=== PATIENT | female | born 1980 | race Caucasian/White ===

== ENCOUNTER 2016-11-02 09:33 | Emergency (ER) | payer MEDICAID ==
[2016-11-02 10:03] VITALS: RESP 18; TEMP 98
[2016-11-02] MEDS ORDERED: LIDOCAINE 2% VISCOUS 15 ML UDCUP PO ONE (10:39)
[2016-11-02] MEDS ORDERED: ONDANSETRON 4 MG/2 ML VIAL IVP ONE (10:39)
[2016-11-02] MEDS ORDERED: MAG HYDROX/AL HYDROX/SIMETH 30 ML UDCUP PO ONE (10:39)
[2016-11-02] MEDS ORDERED: NS 1,000 ML IV ONE (10:39)
[2016-11-02] MEDS ORDERED: HYOSCYAMINE SULFATE 0.125 MG TAB PO ONE (10:39)
--- NOTE | 2016-11-02 10:39 | UCPHY ---
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 - states pain feels similar Time Seen by Provider: 11/02/16 10:28 HPI/ROS: CHIEF COMPLAINT: Pancreatitis symptoms HISTORY OF PRESENT ILLNESS: 36-year-old female with history of pancreatitis secondary to alcohol presents reporting that she has epigastric pain as well as some left upper quadrant pain since yesterday. She feels like it is similar to her prior pancreatitis symptoms. She has been sober for 1 year and 30 days. She also has history of reflux. She took Maalox this morning with some relief of her discomfort. Abdominal discomfort radiates into the chest and to the throat. Patient is nauseous but has not had any vomiting. No diarrhea. She also wonders whether symptoms may be related to elevated cholesterol. She is on simvastatin. REVIEW OF SYSTEMS: Aside from elements discussed in the HPI, a comprehensive 10-point review of systems was reviewed and is negative. PAST MEDICAL HISTORY: Pancreatitis, anxiety, hypercholesterolemia SOCIAL HISTORY: Occasional smoker, no alcohol, just started a new job which is stressful. VITAL SIGNS Reviewed by me. GENERAL: Well-developed, well-nourished, resting comfortably in no respiratory distress. HEENT: Atraumatic. Eyes: No icterus, no injection. Mouth: moist mucous membranes. No erythema or lesions. Neck: supple with no adenopathy. LUNGS: Clear to auscultation bilaterally, no wheezes, rhonchi or rales. CARDIAC: Regular rate and rhythm, no rubs, murmurs or gallops. ABDOMEN: Soft, mild epigastric and left upper quadrant tenderness to deep palpation. No guarding or rebound. BACK: No CVA tenderness. EXTREMITIES: No trauma. No edema. Range of motion is normal throughout. NEURO: Alert and oriented, grossly nonfocal. SKIN: Warm and dry, no rash. PSYCHIATRIC: Normal mentation, no agitation. 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, anxiety/ depression, high cholesterol, pancreatitis, tonsillectomy, choly - Family History Significant Family History: No pertinent family hx - Social History Smoking Status: Current some day smoker Constitutional: Initial Vital Signs Temperature (C) 36.6 C 11/02/16 10:01 Heart Rate 79 11/02/16 10:01 Respiratory Rate 18 11/02/16 10:01 Blood Pressure 121/67 H 11/02/16 10:01 O2 Sat (%) 97 11/02/16 10:01 O2 Delivery Mode Room Air Allergies/Adverse Reactions: latex [Latex] Allergy (Mild, Verified 01/30/14 15:48) REDNESS/ITCHY morphine [Morphine] Allergy (Mild, Verified 01/30/14 15:48) Vomiting sulfamethoxazole [From Bactrim] Allergy (Verified 05/11/14 19:16) trimethoprim [From Bactrim] Allergy (Verified 05/11/14 19:16) Home Medications: Medication Instructions Recorded Gabapentin BID 06/24/15 Gabapentin 300 mg PO HS 06/24/15 Pantoprazole Sodium [Protonix 40mg DAILY 06/24/15 (RX)] Cymbalta 11/02/16 Dicyclomine [Bentyl 20 MG (*)] 20 mg PO QID PRN #20 tab 11/02/16 Ondansetron Odt [Zofran Odt 4 mg 4 mg PO Q6 PRN #12 tab 11/02/16 (*)] Ranitidine HCl 150 mg PO HS #30 tablet 11/02/16 Medical Decision Making ED Course/Re-evaluation: IV was placed and patient received oral healing. She requested a GI cocktail. She declined any narcotic medications. She also received Zofran. She requests a cholesterol level be drawn. Last oral intake 8 o'clock last night. Labs are all normal including LFTs, lipase, and cholesterol. Patient was reexamined. She reports that the GI cocktail improved her symptoms significantly. I believe her symptoms are most likely related to reflux and GERD and gastritis. She was comfortable being discharged with Zantac to add to her Prilosec regiement, Zofran for nausea, and Bentyl for abdominal discomfort. 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 Differential Diagnosis: After obtaining the patient's history and performing an examination, differential diagnosis considered included but was not limited to appendicitis, cholecystitis, gastritis, pancreatitis, kidney stones, urinary tract infections and other causes. - Data Points Laboratory Results: Laboratory Results 11/02/16 10:44 11/02/16 10:44 11/02/16 11/02/16 11/02/16 11:30 10:44 10:44 WBC 4.12 10^3/uL 10^3/uL (3.80-9.50) RBC 4.43 10^6/uL 10^6/uL (4.18-5.33) Hgb 14.9 g/dL g/dL (12.6-16.3) Hct 42.6 % % (38.0-47.0) MCV 96.2 fL fL (81.5-99.8) MCH 33.6 pg pg (27.9-34.1) MCHC 35.0 g/dL g/dL (32.4-36.7) RDW 12.5 % % (11.5-15.2) Plt Count 240 10^3/uL 10^3/uL (150-400) MPV 9.6 fL fL (8.7-11.7) Neut % (Auto) 64.3 % % (39.3-74.2) Lymph % (Auto) 26.0 % % (15.0-45.0) [place]kean % (Auto) 7.5 % % (4.5-13.0) Eos % (Auto) 1.5 % % (0.6-7.6) Baso % (Auto) 0.5 % % (0.3-1.7) Nucleat RBC Rel Count 0.0 % % (0.0-0.2) Absolute Neuts (auto) 2.65 10^3/uL 10^3/uL (1.70-6.50) Absolute Lymphs (auto) 1.07 10^3/uL 10^3/uL (1.00-3.00) Absolute Monos (auto) 0.31 10^3/uL 10^3/uL (0.30-0.80) Absolute Eos (auto) 0.06 10^3/uL 10^3/uL (0.03-0.40) Absolute Basos (auto) 0.02 10^3/uL 10^3/uL (0.02-0.10) Absolute Nucleated RBC 0.00 10^3/uL 10^3/uL (0-0.01) Immature Gran % 0.2 % % (0.0-1.1) Immature Gran # 0.01 10^3/uL 10^3/uL (0.00-0.10) Sodium 141 mEq/L mEq/L (134-144) Potassium 4.5 mEq/L mEq/L (3.5-5.2) Chloride 106 mEq/L mEq/L (97-110) Carbon Dioxide 25 mEq/l mEq/l (22-31) Anion Gap 10 mEq/L mEq/L (8-16) BUN 15 mg/dL mg/dL (7-23) Creatinine 0.7 mg/dL mg/dL (0.6-1.0) Estimated GFR > 60 Glucose 79 mg/dL mg/dL (70-100) Calcium 9.0 mg/dL mg/dL (8.5-10.4) Total Bilirubin 0.6 mg/dL mg/dL (0.1-1.4) Conjugated Bilirubin 0.2 mg/dL mg/dL (0.0-0.5) Unconjugated Bilirubin 0.4 mg/dL mg/dL (0.0-1.1) AST 20 IU/L IU/L (14-46) ALT 35 IU/L IU/L (9-52) Alkaline Phosphatase 59 IU/L IU/L (38-126) Total Protein 6.6 g/dL g/dL (6.3-8.2) Albumin 3.7 g/dL g/dL (3.5-5.0) Cholesterol 188 mg/dL mg/dL (140-200) Lipase 105.0 IU/L IU/L (23-300) Urine Color YELLOW Urine Appearance CLEAR Urine pH 7.0 (5.0-7.5) Ur Specific [place] 1.020 (1.002-1.030) Urine Protein NEGATIVE (NEGATIVE) Urine Ketones NEGATIVE (NEGATIVE) Urine Blood NEGATIVE (NEGATIVE) Urine Nitrate NEGATIVE (NEGATIVE) Urine Bilirubin NEGATIVE (NEGATIVE) Urine Urobilinogen 0.2 EU EU (0.2-1.0) Ur Leukocyte Esterase NEGATIVE (NEGATIVE) Urine Glucose NEGATIVE (NEGATIVE) Medications Given: Discontinued Medications Al Hydroxide/Mg Hydroxide (Maalox Susp) 30 ml PO ONCE ONE Stop: 11/02/16 10:40 Last Admin: 11/02/16 10:54 Dose: 30 ml Hyoscyamine Sulfate (Levsin, Hyomax-Sl) 0.25 mg PO ONCE ONE Stop: 11/02/16 10:40 Last Admin: 11/02/16 10:52 Dose: 0.25 mg Sodium Chloride (Ns) 1,000 mls @ 0 mls/hr IV ONCE ONE PRN Reason: Wide Open Stop: 11/02/16 10:40 Last Admin: 11/02/16 10:53 Dose: 1,000 mls Lidocaine (Lidocaine 2% Viscous) 15 ml PO ONCE ONE Stop: 11/02/16 10:40 Last Admin: 11/02/16 10:54 Dose: 15 ml Ondansetron HCl (Zofran) 4 mg IVP EDNOW ONE Stop: 11/02/16 10:40 Last Admin: 11/02/16 10:53 Dose: 4 mg Departure - Departure Disposition: Home, Routine, Self-Care Clinical Impression: Abdominal pain, Nausea, Gastritis Condition: Good Instructions: Gastritis (ED), Diet for Stomach Ulcers and Gastritis (ED), Abdominal Pain (ED) Additional Instructions: please take the medications as directed. I would recommend that you add Zantac at night. Use Bentyl as needed for abdominal pain. Use Zofran as needed for nausea and vomiting. Follow up with her primary care physician if not improving as expected. Referrals: Lauren Ayala, GEOLOGICAL TECHNICAL OFFICER [Primary Care Provider] - As per Instructions Stand Alone Forms: Work Excuse Prescriptions: Dicyclomine [Bentyl 20 MG (*)] 20 mg PO QID PRN #20 tab PRN Reason: pain, cramping Ondansetron Odt [Zofran Odt 4 mg (*)] 4 mg PO Q6 PRN #12 tab PRN Reason: nausea Ranitidine HCl 150 mg PO HS #30 tablet - PQRS PQRS Measurement: Not applicable
[2016-11-02 10:54] LABS: % IMMATURE GRANULYOCYTES 0.2 % (0.0-1.1); ABSOLUTE IMMATURE GRANULOCYTES 0.01 10^3/uL (0.00-0.10); ADD DIFF? NO; ADD MORPH? NO; ADD SCAN? NO; ATYPICAL LYMPHOCYTE FLAG 30 (0-99); FRAGMENT RBC FLAG 0 (0-99); HEMATOCRIT 42.6 % (38.0-47.0); HEMOGLOBIN 14.9 g/dL (12.6-16.3); LEFT SHIFT FLG 0 (0-99); LIPEMIA HEMOLYSIS FLAG 90 (0-99); MEAN CELL HEMOGLOBIN 33.6 pg (27.9-34.1); MEAN CELL VOLUME 96.2 fL (81.5-99.8); MEAN PLATELET VOLUME 9.6 fL (8.7-11.7); PLATELET CLUMPS FLAG 10 (0-99); PLATELET COUNT 240 10^3/uL (150-400); RED BLOOD CELL COUNT 4.43 10^6/uL (4.18-5.33); RED CELL DISTRIBUTION WIDTH 12.5 % (11.5-15.2)
[2016-11-02 11:08] LABS: ALANINE AMINOTRANSFERASE 35 IU/L (9-52); ALBUMIN 3.7 g/dL (3.5-5.0); ALKALINE PHOSPHATASE 59 IU/L (38-126); ANION GAP 10 mEq/L (8-16); ASPARTATE AMINOTRANSFERASE 20 IU/L (14-46); BILIRUBIN,TOTAL 0.6 mg/dL (0.1-1.4); BILIRUBIN-CONJUGATED 0.2 mg/dL (0.0-0.5); BILIRUBIN-UNCONJUGATED 0.4 mg/dL (0.0-1.1); CARBON DIOXIDE 25 mEq/l (22-31); CHLORIDE 106 mEq/L (97-110); CHOLESTEROL 188 mg/dL (140-200); CREATININE 0.7 mg/dL (0.6-1.0); GLOMERULAR FILTRATION RATE > 60; GLUCOSE 79 mg/dL (70-100); POTASSIUM 4.5 mEq/L (3.5-5.2); SODIUM 141 mEq/L (134-144); TOTAL PROTEIN 6.6 g/dL (6.3-8.2)
[2016-11-02 11:35] LABS: COLOR YELLOW; LEUKOCYTE ESTERASE,URINE NEGATIVE (NEGATIVE); NITRITE,URINE NEGATIVE (NEGATIVE)
[2016-11-02 12:06] VITALS: BP 115/62; PULSE 77; O2SAT 96
== END 2016-11-02 11:55 | disposition home or self-care (01) ==
LOC: CED 09:33
DX: K29.70 Gastritis, unspecified, without bleeding (principal); K21.9 Gastro-esophageal reflux disease without esophagitis; F17.200 Nicotine dependence, unspecified, uncomplicated; E78.00 Pure hypercholesterolemia, unspecified; Z91.040 Latex allergy status; Z88.5 Allergy status to narcotic agent
CPT/HCPCS: 80048-PO; 80076-PO; 81003-PO; 82465-PO; 83690-PO; 85025-PO; 96361-PO; 96374-PO; 99205-PO; G0463-PO; J2405

== ENCOUNTER → 2018-07-26 | Outpatient (CLI) | payer OTHER | LOC: FIMAGING 13:20 | PROVIDERS: ATTEND Nurse Practitioner | DX: M25.551 Pain in right hip (principal); M79.9 Soft tissue disorder, unspecified; R53.83 Other fatigue; R63.5 Abnormal weight gain ==